=== PATIENT | female | born 1995 | race Caucasian/White ===

== ENCOUNTER 2017-08-31 13:10 | Emergency (ER) | payer OTHER ==
--- NOTE | 2017-08-31 13:39 | ED ---
Breast Complaint - HPI Summary HPI Summary: 22-year-old female presents with left breast pain for the past 2 days. She denies any injury. No rash. No history of breast issues. He has a family history of breast cancer. No drainage from her nipple. No history of MRSA. No fevers. Does not do self breast exams. Is not . No chest pain or shortness of breath. pain has gotten worst. no recent bug bites. no lymphadenopathy. no previous masses to area. has not tried anything for pain. not on hormones. - Allergy/Home Medications Allergies/Adverse Reactions: Allergies Allergy/AdvReac Type Severity Reaction Status Date / Time No Known Allergies Allergy Verified 08/31/17 13:19 Home Medications: Home Medications Ventolin HFA Inhaler* 2 puff INH Q2HR PRN 08/31/17 [History Confirmed 08/31/17] PMH/Surg Hx/FS Hx/Imm Hx Endocrine/Hematology History: Denies: Hx Anticoagulant Therapy Respiratory History: Reports: Hx Asthma Infectious Disease History: No Infectious Disease History: Denies: Traveled Outside the [place] in Last 30 Days - Family History Known Family History: Positive: Other - breast CA Review of Systems Negative: Fever Negative: Chest Pain Negative: Shortness Of Breath Positive: Other - left breast pain All Other Systems Reviewed And Are Negative: Yes Physical Exam Triage Information Reviewed: Yes Vital Signs On Initial Exam: Initial Vitals Temp Pulse Resp BP Pulse Ox 98.7 F 71 17 118/77 99 08/31/17 13:12 08/31/17 13:12 08/31/17 13:12 08/31/17 13:12 08/31/17 13:12 Vital Signs Reviewed: Yes Appearance: Positive: Well-Appearing Skin: Positive: Warm, Dry, Other - tendernenss left outer breast, no mass felt, no erythema Head/Face: Positive: Normal Head/Face Inspection Eyes: Positive: Normal, Conjunctiva Clear ENT: Positive: Pharynx normal Respiratory/Lung Sounds: Positive: Clear to Auscultation, Breath Sounds Present Cardiovascular: Positive: Normal, RRR Abdomen Description: Positive: Nontender, Soft Bowel Sounds: Positive: Present Musculoskeletal: Positive: Normal Neurological: Positive: Normal Psychiatric: Positive: Normal Diagnostics - Vital Signs Vital Signs Temp Pulse Resp BP Pulse Ox 08/31/17 13:12 98.7 F 71 17 118/77 99 - Laboratory Lab Statement: Any lab studies that have been ordered have been reviewed, and results considered in the medical decision making process. - Ultrasound No standard instances Ultrasound Interpretation: No Acute Changes Ultrasound Interpretation Completed By: Radiologist Breast Pain Course/Dx - Course Course Of Treatment: 22-year-old female presents with left breast pain for the past 2 days. She denies any injury. No rash. No history of breast issues. He has a family history of breast cancer. No drainage from her nipple. No history of MRSA. No fevers. Does not do self breast exams. Is not . No chest pain or shortness of breath. pain has gotten worst. no recent bug bites. no lymphadenopathy. no previous masses to area. On exam no rash or abscess seen. Tenderness left outer breast with no masses felt. Ultrasound shows no mass. discussed that should try supporative bra and ibuprofen. will have follow up with obstetrics/gynecology nurse. patient states may want to start OCP but will have follow up with obstetrics/gynecology nurse about such. patient understand and agrees with plan. - Differential Diagnoses Differential Diagnosis/HQI/PQRI: Breast Abscess, Breast Mass, Cystic Myalgia, Fibrocystic Breast Disease - Diagnoses Provider Diagnoses: Breast pain Discharge - Sign-Out/Discharge Documenting (check all that apply): Discharge/Admit/Transfer - Discharge Plan Condition: Good Disposition: HOME Patient Education Materials: Premenstrual Syndrome (ED) Referrals: Nghia Huynh MD [Primary Care Provider] - Jose Vazquez MD [Medical Doctor] - Additional Instructions: likely premenstrual pain as no mass on u/s take ibuprofen every 6 hours as needed for pain Wear supportive bra can try ice or heat Follow up with obstetrics/gynecology nurse Return to ED if develop any new or worsening symptoms - Billing Disposition and Condition Condition: GOOD Disposition: Home
--- NOTE | 2017-08-31 14:31 | RAD ---
Indication: Left breast pain. Real-time sonography of the left breast was performed. There are no solid or cystic lesions noted. No shadowing masses are noted. IMPRESSION: No solid or cystic lesion is identified in the area of left breast pain. BI-RADS: 1, negative
[2017-08-31 14:48] VITALS: BP 114/83
== END 2017-08-31 14:48 | disposition home or self-care (01) ==
LOC: ED 13:10
DX: N64.4 Mastodynia (principal); Z85.3 Personal history of malignant neoplasm of breast
CPT/HCPCS: 99282

== ENCOUNTER 2018-03-04 00:13 | Emergency (ER) | payer OTHER ==
[2018-03-04] MEDS ORDERED: Ondansetron ODT TAB* 4 MG PO ONE (00:26)
[2018-03-04] MEDS ORDERED: Ketorolac INJ* 30 MG/ML 1 ML VIAL IV PUSH ONE (00:27)
[2018-03-04] MEDS ORDERED: NS 0.9% 1000 ML* 1,000 ML IV ONE (00:27)
[2018-03-04] MEDS ORDERED: Albuterol/Ipratropium NEB.SOL* Albuterol 2.5 MG/Ipratropium 0.5 MG 3 ML INH ONE (00:27)
[2018-03-04] MEDS ORDERED: Ondansetron INJ* 2 MG/ML VIAL IV ONE (00:29)
--- NOTE | 2018-03-04 00:29 | ED ---
GI/ HPI - HPI Summary HPI Summary: 23 year old female presents with nausea, vomiting, and diarrhea for the couple past hours. She started after she ate clam chowder soup. She states her is not sick. She admits to generalized abdominal pain. She had an asthma attack on her way here. She states did fall but does not remember falling in her bathroom. No head injury. No other injury. She has not tried anything for her symptoms. Only has a history of asthma. She did not take her inhaler. no chest pain but admits to shortness of breath. no urinary symptoms. - History of Current Complaint Chief Complaint: EDGeneral Time Seen by Provider: 03/04/18 00:21 Stated Complaint: ASTHMA Pain Intensity: 0 - Allergy/Home Medications Allergies/Adverse Reactions: Allergies Allergy/AdvReac Type Severity Reaction Status Date / Time No Known Allergies Allergy Verified 08/31/17 13:19 Home Medications: Home Medications Desogestrel-Ethinyl Estradiol [Isibloom 28 Day Tablet] 1 tab PO DAILY 03/04/18 [ History Confirmed 03/04/18] PMH/Surg Hx/FS Hx/Imm Hx Endocrine/Hematology History: Denies: Hx Anticoagulant Therapy Respiratory History: Reports: Hx Asthma Infectious Disease History: No Infectious Disease History: Denies: Traveled Outside the [place] in Last 30 Days - Family History Known Family History: Positive: Other - breast CA - Social History Alcohol Use: None Substance Use Type: Reports: None Smoking Status (MU): Never Smoked Tobacco Review of Systems Negative: Fever Negative: Chest Pain Positive: Shortness Of Breath Positive: Abdominal Pain, Vomiting, Diarrhea, Nausea All Other Systems Reviewed And Are Negative: Yes Physical Exam Triage Information Reviewed: Yes Vital Signs On Initial Exam: Initial Vitals Temp Pulse Resp BP Pulse Ox 98.5 F 114 20 129/78 100 03/04/18 00:14 03/04/18 00:14 03/04/18 00:14 03/04/18 00:14 03/04/18 00:14 Vital Signs Reviewed: Yes Appearance: Positive: Well-Appearing Skin: Positive: Warm, Dry Head/Face: Positive: Normal Head/Face Inspection Eyes: Positive: Normal, EOMI, CYRUS, Conjunctiva Clear ENT: Positive: Normal ENT inspection, Pharynx normal, TMs normal Respiratory/Lung Sounds: Positive: Clear to Auscultation, Breath Sounds Present Cardiovascular: Positive: Normal, RRR Abdomen Description: Positive: Nontender, Soft Bowel Sounds: Positive: Present Musculoskeletal: Positive: Normal Neurological: Positive: Normal Psychiatric: Positive: Normal Diagnostics - Vital Signs Vital Signs Temp Pulse Resp BP Pulse Ox 03/04/18 00:14 98.5 F 114 20 129/78 100 - Laboratory Result Diagrams: 03/04/18 00:36 03/04/18 00:29 Lab Statement: Any lab studies that have been ordered have been reviewed, and results considered in the medical decision making process. Re-Evaluation - Re-Evaluation First Eval Re-Evaluation Time: 01:38 Change: Improved Comment: symptoms resolved, lungs CTA GIGU Course/Dx - Course Course Of Treatment: 23 year old female presents with nausea, vomiting, and diarrhea for the couple past hours. She started after she ate clam chowder soup. She states her is not sick. She admits to generalized abdominal pain. She had an asthma attack on her way here. She states did fall but does not remember falling in her bathroom. No head injury. No other injury. She has not tried anything for her symptoms. Only has a history of asthma. She did not take her inhaler. no chest pain but admits to shortness of breath. no urinary symptoms. on exam has nontender abd. did vomit in room. lungs CTA. gave zofran and breathing treatment and feeling better. wbc 12 consistent with vomiting. electrolytes normal. will discharge with zofran. patient understand and agrees with plan. - Diagnoses Differential Diagnoses - Female: Gastroenteritis (Viral), Gastroenteritis ( Bacterial), Urinary Tract Infection Provider Diagnoses: Asthma, Nausea & vomiting Discharge - Sign-Out/Discharge Documenting (check all that apply): Patient Departure - Discharge Plan Condition: Good Disposition: HOME Prescriptions: Ondansetron ODT TAB* [Zofran 4 MG Odt TAB*] 4 mg PO Q6H PRN #12 tab.odt PRN Reason: Nausea Patient Education Materials: Acute Nausea and Vomiting (ED) Forms: *Work Release Referrals: Nghia Huynh MD [Primary Care Provider] - Additional Instructions: Can take Zofran every 6 hours as needed for nausea Drink small amounts of fluid as tolerated When able to eat follow BRAT diet: Bananas, rice, applesauce, toast Take ibuprofen or Tylenol for pain as needed every 6 hours Follow up with primary within 5 days Return to ED if develop any new or worsening symptoms - Billing Disposition and Condition Condition: GOOD Disposition: Home
[2018-03-04 00:42] LABS: ABS Basophils 0 10^3/ul (0-0.2); ABS Eosinophils 0.1 10^3/ul (0-0.6); ABS Lymphocytes 0.9 10^3/ul (1.0-4.8); ABS Monocytes 0.8 10^3/ul (0-0.8); ABS Neutrophils 10.9 10^3/ul (1.5-7.7); ABS Nucleated RBC 0 10^3/ul; Eosinophil % 0.6 %; Hematocrit 43 % (35-47); Hemoglobin 14.5 g/dl (12.0-16.0); Mean Corpuscular HGB Conc 34 g/dl (31-36); Mean Corpuscular Hemoglobin 28 pg (27-31); Mean Corpuscular Volume 83 fL (80-97); Mean Platelet Volume 8.1 fL (7.4-10.4); Nucleated Red Blood Cells % 0; Platelet Count 303 10^3/ul (150-450); Red Blood Count 5.16 10^6/ul (4.00-5.40); Red Cell Distribution Width 13 % (10.5-15); White Blood Count 12.6 10^3/ul (3.5-10.8)
[2018-03-04 01:02] LABS: ALT 12 U/L (7-52); AST 14 U/L (13-39); Albumin 4.3 g/dL (3.2-5.2); Albumin/Globulin Ratio 1.5 (1-3); Alkaline Phosphatase 52 U/L (34-104); Anion Gap 10 mmol/L (2-11); BUN/Creatinine Ratio 23.7 (8-20); Blood Urea Nitrogen 18 mg/dL (6-24); C Reactive Protein 1.73 mg/L (<8.01); CO2 Carbon Dioxide 23 mmol/L (22-32); Calcium 9.6 mg/dL (8.6-10.3); Chloride 102 mmol/L (101-111); EGFR Non-African American 94.3 (>60); Globulin 2.8 g/dL (2-4); Glucose 124 mg/dL (70-100); Potassium 3.9 mmol/L (3.5-5.0); Sodium 135 mmol/L (135-145); Total Protein 7.1 g/dL (6.4-8.9)
[2018-03-04 01:08] LABS: HCG Pregnancy < 0.60 mIU/mL
[2018-03-04] MEDS ORDERED: O ndansetron ODT 4MG 5TAB PRPK 4 MG PAK PO ONE (01:33)
[2018-03-04 01:49] VITALS: BP 126/78
== END 2018-03-04 01:48 | disposition home or self-care (01) ==
LOC: ED 00:13
DX: J45.909 Unspecified asthma, uncomplicated (principal); R11.2 Nausea with vomiting, unspecified; R10.84 Generalized abdominal pain
CPT/HCPCS: 36415; 80053; 83690; 84702; 85025; 86140; 96374; 96375; 99283; A9270-GY; J1885; J2405

== ENCOUNTER 2018-04-03 16:35 | Emergency (ER) | payer OTHER ==
[2018-04-03 16:44] VITALS: BP 115/72
== END 2018-04-03 18:20 | disposition left against medical advice (07) ==
LOC: ED 16:35
DX: M25.562 Pain in left knee (principal); M25.561 Pain in right knee; Z91.81 History of falling; Z53.21 Procedure and treatment not carried out due to patient leaving prior to being seen by health care provider